=== PATIENT | male | born 1990 | race Caucasian/White ===

== ENCOUNTER 2016-07-30 23:58 | Emergency (ER) | payer OTHER ==
[2016-07-31] MEDS ORDERED: KETOROLAC 30 MG/ML VIAL (J1885) As Ordered ONE (00:39)
[2016-07-31] MEDS ORDERED: METHOCARBAMOL 500 MG TAB As Ordered ONE (00:39)
--- NOTE | 2016-07-31 01:30 | EDDOCDS ---
Physician Documentation [facility] Name: Brown Leblanc Age: 26 yrs Sex: Male : 1990 Arrival Date: 07/30/2016 Time: 23:58 Bed I7 / 29 Private MD: Disposition: 07/31/16 01:21 Discharged to Home/Self Care. Impression: Low back pain, Encounter for issue of repeat prescription - ALBUTEROL. - Condition is Stable. - Discharge Instructions: Back Pain, Adult, Medicine Refill at the Emergency Department. - Prescriptions for Robaxin- 750 750 mg Oral Tablet - take 1 tablet by ORAL route every 6 hours As needed; 40 tablet. ketorolac 10 mg Oral Tablet - take 1 tablet by ORAL route every 6 hours As needed MDD- 40mg. Up to 5 days total use.; 20 tablet. Albuterol Sulfate 90 mcg/actuation Inhalation HFA Aerosol Inhaler - inhale 2 puff by INHALATION route every 4 hours As needed; 1 Inhaler. - Medication Reconciliation, Local Pharmacy Hours form. - Follow up: Phylicia Barr [facility]; When: 2 - 3 days; Reason: Recheck today's complaints, Continuance of care. - Problem is new. - Symptoms have improved. Historical: - Allergies: No known drug Allergies; - Home Meds: 1. none - PMHx: Asthma; - PSHx: [place] teeth extraction; Tonsillectomy; - Social history: Smoking status: Patient states was never smoker of tobacco. No barriers to communication noted, The patient speaks fluent Mosotho, Speaks appropriately for age. - Family history: Not pertinent. - : The pt / caregiver states he / she is not on anticoagulants. Home medication list is obtained from the patient. - Exposure Risk Screening:: None identified. Vital Signs: 07/31 00:26 BP 142 / 72; Pulse 78; Resp 18; Temp 98.4; Pulse Ox 95% ; Weight 99.79 kg / 220 lbs; nn1 Height 5 ft. 10 in. (177.80 cm); Pain 5/10; 01:26 BP 136 / 75; Pulse 80; Resp 18; Temp 97.8(O); Pulse Ox 97% on R/A; Pain 0/10; jmb 00:26 Body Mass Index 31.57 (99.79 kg, 177.80 cm) nn1 MDM: 00:34 ketorolac 60 mg IM once ordered. ck7 00:34 Methocarbamol 1 grams PO once ordered. ck7 00:37 Spine. Lumbosacral, Complete Ordered. EDMS 01:00 Financial registration complete. pm4 01:11 [facility] Payment Agreement was scanned into [employer] and attached to record. pm4 Administered Medications: 00:46 Drug: ketorolac 60 mg [ketorolac 30 mg/mL (1 mL) injection solution (2 mL)] Route: IM; rw1 Site: left deltoid; 00:46 Drug: Methocarbamol 1 grams [methocarbamol 500 mg tablet (2 tabs)] Route: PO; rw1 Signatures: Dispatcher [employer] EDMS Gilberto Finney, MAHNAZC RPA-Cck7 Waqar ChandlerRN RN Alexei Carrillo RN RN nn1 Kenny Merritt, Reg Reg pm4 Brown Yeager LPN rw1 The chart was reviewed and I authenticate all verbal orders and agree with the evaluation and treatment provided.Attachments: 01:11 [facility] Payment Agreement pm4 MTDD
--- NOTE | 2016-07-31 01:30 | EDDOCDS ---
Nurse's Notes [facility] Name: Brown Leblanc Age: 26 yrs Sex: Male : 1990 Arrival Date: 07/30/2016 Time: 23:58 Bed I7 / 29 Private MD: Diagnosis: Low back pain;Encounter for issue of repeat prescription-ALBUTEROL Presentation: 07/31 00:21 Presenting complaint: Patient states: pain in lower back, states he has had chronic nn1 back pain but today felt a snap. Acute neurological deficits are not present. Mechanism of Injury: Lifting. Adult Sepsis Screening: Patient's respiratory rate is less than 22. Systolic blood pressure is greater than 100. Patient has a qSOFA score of 0- Negative Sepsis Screen. Suicide/Homicide risk assessment- the patient denies having any suicidal and/or homicidal ideations and does not present with any other emotional, behavioral or mental health complaints. Status: The patient is an active duty nutritional services host. Transition of care: patient was not received from another setting of care. 00:21 Acuity: CHARLEY Level 4 nn1 00:21 Method Of Arrival: Walkin/Carried/Asstd nn1 Triage Assessment: 00:23 General: Appears in no apparent distress, comfortable. Pain: Location: low back area nn1 Pain currently is 5 out of 10 on a pain scale. At worst was 8 out of 10 on a pain scale. Aggravated by repositioning, walking/movement. Pt Declines HIV testing. Derm: Skin is pink, warm & dry. Musculoskeletal: Circulation, motion, and sensation intact Capillary refill < 3 seconds Range of motion intact in all extremities. No deformity noted Swelling absent. Historical: - Allergies: No known drug Allergies; - Home Meds: 1. none - PMHx: Asthma; - PSHx: [place] teeth extraction; Tonsillectomy; - Social history: Smoking status: Patient states was never smoker of tobacco. No barriers to communication noted, The patient speaks fluent Pashto, Speaks appropriately for age. - Family history: Not pertinent. - : The pt / caregiver states he / she is not on anticoagulants. Home medication list is obtained from the patient. - Exposure Risk Screening:: None identified. Screenin:19 Screening information is obtained from the patient. Fall risk: No risks identified. jmb Assistance ADL's: requires no assistance with activities of daily living. Abuse/DV Screen: The patient / caregiver reports he/she is: not in a situation that causes fear, pain or injury. Nutritional screening: No deficits noted. home support is adequate. 01:26 Advance Directives: Currently, there is no health care proxy. There is no active DNR jmb order. There is no living will. There is no Power of Floor Press Operator. Assessment: 01:19 General: Appears in no apparent distress, Behavior is appropriate for age, cooperative. jmb Pain: Location: back and low back area Pain currently is 7 out of 10 on a pain scale. Neurological: Level of Consciousness is awake, alert, obeys commands, Oriented to person, place, time, Community Development Coordinator are equal bilaterally Speech is normal, Facial symmetry appears normal, Facial symmetry: tongue is midline. Cardiovascular: Capillary refill < 3 seconds Heart tones S1 S2 present Pulses are all present. Rhythm is regular. Respiratory: Airway is patent Respiratory effort is even, unlabored, Respiratory pattern is regular, symmetrical, Breath sounds are clear bilaterally. GI: Abdomen is non- distended Bowel sounds present X 4 quads. Abd is soft and non tender X 4 quads. Derm: Skin is pink, warm & dry. Musculoskeletal: Range of motion intact in all extremities. 01:26 General: Patient instructed on discharge instructions. Patient asked if there were any b questions regarding discharge, patient stated no. Patient signed discharge instructions. Patient discharged in stable condition. . Vital Signs: 00:26 BP 142 / 72; Pulse 78; Resp 18; Temp 98.4; Pulse Ox 95% ; Weight 99.79 kg; Height 5 ft. nn1 10 in. (177.80 cm); Pain 5/10; 01:26 BP 136 / 75; Pulse 80; Resp 18; Temp 97.8(O); Pulse Ox 97% on R/A; Pain 0/10; jmb 00:26 Body Mass Index 31.57 (99.79 kg, 177.80 cm) nn1 Vitals: 00:26 Log In Time: July 30, 2016 at 23:59. nn1 ED Course: 07/30 23:59 Patient visited by Mariela Bustos, Reg. hs2 23:59 Patient moved to Waiting hs2 07/31 00:22 Triage Initiated nn1 00:24 Patient moved to [facility] Wait 00:27 Sosa Garcia,RN is Primary Nurse. nn1 00:27 Patient moved to nn1 00:28 Primary Nurse role handed off by Sosa Garcia RN jmb 00:29 [facility]C [facility] ck7 00:29 Ankit Sorto MD is Attending Physician. ck7 00:29 Patient visited by Gilberto Finney RPA-C. ck7 00:46 Patient visited by Brown Yeager LPN. rw1 01:11 Patient name changed from Brown\S\W\S\Deana\S\ to Brown\S\Munir\S\Deana. EDMS 01:11 [facility] Payment Agreement was scanned into [employer] and attached to record. pm4 01:19 The patient / caregiver is instructed regarding the plan of care and ED course. jmb 01:19 No IV's were initiated during this patient's visit. No procedures done that require jmb assistance. 01:20 Patient visited by Gilberto Finney RPA-C. ck7 01:21 Patient visited by Waqar Chandler RN. jmb 01:21 [facility] ck7 Administered Medications: 00:46 Drug: ketorolac 60 mg [ketorolac 30 mg/mL (1 mL) injection solution (2 mL)] Route: IM; rw1 Site: left deltoid; 00:46 Drug: Methocarbamol 1 grams [methocarbamol 500 mg tablet (2 tabs)] Route: PO; rw1 Order Results: There are currently no results for this order. Outcome: 01:21 Discharge ordered by Provider. ck7 01:26 Discharge Assessment: Patient awake, alert and oriented x 3. No cognitive and/or jmb functional deficits noted. Patient verbalized understanding of disposition instructions. Patient awake and alert. obeys commands, Oriented to person, place and time. Patient verbalized understanding of disposition instructions. Patient has no functional deficits. patient administered narcotics - no. The following High Risk Discharge criteria are identified: None. Discharged to home ambulatory, with significant other. Condition: stable Condition: improved. Discharge instructions given to patient, Instructed on discharge instructions, follow up and referral plans. Demonstrated understanding of instructions, medications, Pt was receptive of discharge instructions/ teaching. Prescriptions given X 3. No special radiology studies were completed. Property sent home with patient. 01:28 Patient left the ED. donald Signatures: Dispatcher [employer] EDMS Tank Benitez, RN RN Brown Owusu LPN LPN rw1 Gilberto Finney, RPA-C RPA-Cck7 Waqar Chandler RN RN jmb Nunez, Nikkole, RN RN nn1 Mariela Bustos, Reg Reg hs2 Kenny Merritt, Reg Reg pm4 MTDD
--- NOTE | 2016-07-31 01:50 | REP ---
Clinical: Deformity and swelling. Technique: AP, lateral, bilateral oblique, and coned-down views. Findings: Alignment and lordosis is maintained. The vertebral bodies including transverse process and spinous processes are intact and normal. There is no evidence for acute fracture / compression injury or subluxation. No evidence for spondylolysis or spondylolisthesis. No significant degenerative change is noted. Impression: Normal lumbosacral spine radiograph series. Signed by Andrews Rosales MD 07/31/2016 01:41 A
--- NOTE | 2016-08-02 02:30 | EDDOCDS ---
Physician Documentation [facility] Name: Brown Leblanc Age: 26 yrs Sex: Male : 1990 Arrival Date: 07/30/2016 Time: 23:58 Bed I7 / 29 Private MD: Disposition: 07/31/16 01:21 Discharged to Home/Self Care. Impression: Low back pain, Encounter for issue of repeat prescription - ALBUTEROL. - Condition is Stable. - Discharge Instructions: Back Pain, Adult, Medicine Refill at the Emergency Department. - Prescriptions for Robaxin- 750 750 mg Oral Tablet - take 1 tablet by ORAL route every 6 hours As needed; 40 tablet. ketorolac 10 mg Oral Tablet - take 1 tablet by ORAL route every 6 hours As needed MDD- 40mg. Up to 5 days total use.; 20 tablet. Albuterol Sulfate 90 mcg/actuation Inhalation HFA Aerosol Inhaler - inhale 2 puff by INHALATION route every 4 hours As needed; 1 Inhaler. - Medication Reconciliation, Local Pharmacy Hours form. - Follow up: Phylicia Barr [facility]; When: 2 - 3 days; Reason: Recheck today's complaints, Continuance of care. - Problem is new. - Symptoms have improved. Historical: - Allergies: No known drug Allergies; - Home Meds: 1. none - PMHx: Asthma; - PSHx: [place] teeth extraction; Tonsillectomy; - Social history: Smoking status: Patient states was never smoker of tobacco. No barriers to communication noted, The patient speaks fluent Cambodian, Speaks appropriately for age. - Family history: Not pertinent. - : The pt / caregiver states he / she is not on anticoagulants. Home medication list is obtained from the patient. - Exposure Risk Screening:: None identified. Vital Signs: 07/31 00:26 BP 142 / 72; Pulse 78; Resp 18; Temp 98.4; Pulse Ox 95% ; Weight 99.79 kg / 220 lbs; nn1 Height 5 ft. 10 in. (177.80 cm); Pain 5/10; 01:26 BP 136 / 75; Pulse 80; Resp 18; Temp 97.8(O); Pulse Ox 97% on R/A; Pain 0/10; jmb 00:26 Body Mass Index 31.57 (99.79 kg, 177.80 cm) nn1 MDM: 00:34 ketorolac 60 mg IM once ordered. ck7 00:34 Methocarbamol 1 grams PO once ordered. ck7 00:37 Spine. Lumbosacral, Complete Ordered. EDMS 01:00 Financial registration complete. pm4 01:11 [facility] Payment Agreement was scanned into [employer] and attached to record. pm4 11:48 T-Sheet-- Draft Copy was scanned into [employer] and attached to record. gb Administered Medications: 00:46 Drug: ketorolac 60 mg [ketorolac 30 mg/mL (1 mL) injection solution (2 mL)] Route: IM; rw1 Site: left deltoid; 00:46 Drug: Methocarbamol 1 grams [methocarbamol 500 mg tablet (2 tabs)] Route: PO; rw1 Signatures: Dispatcher [employer] EDMS Rebekah Aponte, Reg Reg gb Gilberto Finney, RPA-C RPA-Cck7 Waqar ChandlerRN RN Alexei Carrillo RN RN nn1 Kenny Merritt, Reg Reg pm4 Brown Yeager LPN rw1 The chart was reviewed and I authenticate all verbal orders and agree with the evaluation and treatment provided.Attachments: 01:11 [facility] Payment Agreement pm4 11:48 T-Sheet-- Draft Copy gb Chart Complete MTDD
--- NOTE | 2016-08-02 02:30 | EDDOCDS ---
Nurse's Notes [facility] Name: Brown Leblanc Age: 26 yrs Sex: Male : 1990 Arrival Date: 07/30/2016 Time: 23:58 Bed I7 / 29 Private MD: Diagnosis: Low back pain;Encounter for issue of repeat prescription-ALBUTEROL Presentation: 07/31 00:21 Presenting complaint: Patient states: pain in lower back, states he has had chronic nn1 back pain but today felt a snap. Acute neurological deficits are not present. Mechanism of Injury: Lifting. Adult Sepsis Screening: Patient's respiratory rate is less than 22. Systolic blood pressure is greater than 100. Patient has a qSOFA score of 0- Negative Sepsis Screen. Suicide/Homicide risk assessment- the patient denies having any suicidal and/or homicidal ideations and does not present with any other emotional, behavioral or mental health complaints. Status: The patient is an active duty clinical services director. Transition of care: patient was not received from another setting of care. 00:21 Acuity: CHARLEY Level 4 nn1 00:21 Method Of Arrival: Walkin/Carried/Asstd nn1 Triage Assessment: 00:23 General: Appears in no apparent distress, comfortable. Pain: Location: low back area nn1 Pain currently is 5 out of 10 on a pain scale. At worst was 8 out of 10 on a pain scale. Aggravated by repositioning, walking/movement. Pt Declines HIV testing. Derm: Skin is pink, warm & dry. Musculoskeletal: Circulation, motion, and sensation intact Capillary refill < 3 seconds Range of motion intact in all extremities. No deformity noted Swelling absent. Historical: - Allergies: No known drug Allergies; - Home Meds: 1. none - PMHx: Asthma; - PSHx: [place] teeth extraction; Tonsillectomy; - Social history: Smoking status: Patient states was never smoker of tobacco. No barriers to communication noted, The patient speaks fluent Greenlandic, Speaks appropriately for age. - Family history: Not pertinent. - : The pt / caregiver states he / she is not on anticoagulants. Home medication list is obtained from the patient. - Exposure Risk Screening:: None identified. Screenin:19 Screening information is obtained from the patient. Fall risk: No risks identified. jmb Assistance ADL's: requires no assistance with activities of daily living. Abuse/DV Screen: The patient / caregiver reports he/she is: not in a situation that causes fear, pain or injury. Nutritional screening: No deficits noted. home support is adequate. 01:26 Advance Directives: Currently, there is no health care proxy. There is no active DNR jmb order. There is no living will. There is no Power of Nitrating Acid Mixer. Assessment: 01:19 General: Appears in no apparent distress, Behavior is appropriate for age, cooperative. jmb Pain: Location: back and low back area Pain currently is 7 out of 10 on a pain scale. Neurological: Level of Consciousness is awake, alert, obeys commands, Oriented to person, place, time, Wide Piece Goods Inspector are equal bilaterally Speech is normal, Facial symmetry appears normal, Facial symmetry: tongue is midline. Cardiovascular: Capillary refill < 3 seconds Heart tones S1 S2 present Pulses are all present. Rhythm is regular. Respiratory: Airway is patent Respiratory effort is even, unlabored, Respiratory pattern is regular, symmetrical, Breath sounds are clear bilaterally. GI: Abdomen is non- distended Bowel sounds present X 4 quads. Abd is soft and non tender X 4 quads. Derm: Skin is pink, warm & dry. Musculoskeletal: Range of motion intact in all extremities. 01:26 General: Patient instructed on discharge instructions. Patient asked if there were any b questions regarding discharge, patient stated no. Patient signed discharge instructions. Patient discharged in stable condition. . Vital Signs: 00:26 BP 142 / 72; Pulse 78; Resp 18; Temp 98.4; Pulse Ox 95% ; Weight 99.79 kg; Height 5 ft. nn1 10 in. (177.80 cm); Pain 5/10; 01:26 BP 136 / 75; Pulse 80; Resp 18; Temp 97.8(O); Pulse Ox 97% on R/A; Pain 0/10; jmb 00:26 Body Mass Index 31.57 (99.79 kg, 177.80 cm) nn1 Vitals: 00:26 Log In Time: July 30, 2016 at 23:59. nn1 ED Course: 07/30 23:59 Patient visited by Mariela Bustos, Reg. hs2 23:59 Patient moved to Waiting hs2 07/31 00:22 Triage Initiated nn1 00:24 Patient moved to [facility] Wait 00:27 Sosa Garcia,RN is Primary Nurse. nn1 00:27 Patient moved to nn1 00:28 Primary Nurse role handed off by Sosa Garcia RN jmb 00:29 [facility]ber[facility] Fin[facility]C [facility] ck[facility] 00:29 Ankit Sorto MD is Attending Physician. ck7 00:29 Patient visited by Gilberto Finney RPA-C. ck7 00:46 Patient visited by Brown Yeager LPN. rw1 01:11 Patient name changed from Brown\S\W\S\Deana\S\ to Brown\S\Munir\S\Deana. EDMS 01:11 [facility] [place] Agreement was scanned into [employer] and attached to record. pm4 01:19 The patient / caregiver is instructed regarding the plan of care and ED course. jmb 01:19 No IV's were initiated during this patient's visit. No procedures done that require jmb assistance. 01:20 Patient visited by Gilberto Finney RPA-C. ck7 01:21 Patient visited by Waqar Chandler RN. jmb 01:21 [facility] is Referral Physician. ck7 01:55 Spine. Lumbosacral, Complete Returned. EDMS 11:48 T-Sheet-- Draft Copy was scanned into [employer] and attached to record. gb Administered Medications: 00:46 Drug: ketorolac 60 mg [ketorolac 30 mg/mL (1 mL) injection solution (2 mL)] Route: IM; rw1 Site: left deltoid; 00:46 Drug: Methocarbamol 1 grams [methocarbamol 500 mg tablet (2 tabs)] Route: PO; rw1 Order Results: Radiology Order: Spine. Lumbosacral, Complete Test: Spine. Lumbosacral, Complete REASON FOR EXAMINATION: Deformity/Swelling; ; ; Clinical: Deformity and swelling.; ; Technique: AP, lateral, bilateral oblique, and coned-down views.; ; Findings: Alignment and lordosis is maintained. The vertebral bodies including; transverse process and spinous processes are intact and normal. There is no; evidence for acute fracture / compression injury or subluxation. No evidence for; spondylolysis or spondylolisthesis. No significant degenerative change is; noted.; ; Impression:; Normal lumbosacral spine radiograph series.; ; ; Signed by; Andrews Rosales MD 07/31/2016 01:41 A; Outcome: 01:21 Discharge ordered by Provider. ck7 01:26 Discharge Assessment: Patient awake, alert and oriented x 3. No cognitive and/or jmb functional deficits noted. Patient verbalized understanding of disposition instructions. Patient awake and alert. obeys commands, Oriented to person, place and time. Patient verbalized understanding of disposition instructions. Patient has no functional deficits. patient administered narcotics - no. The following High Risk Discharge criteria are identified: None. Discharged to home ambulatory, with significant other. Condition: stable Condition: improved. Discharge instructions given to patient, Instructed on discharge instructions, follow up and referral plans. Demonstrated understanding of instructions, medications, Pt was receptive of discharge instructions/ teaching. Prescriptions given X 3. No special radiology studies were completed. Property sent home with patient. 01:28 Patient left the ED. donald Signatures: Dispatcher [employer] EDMS Tank Benitez, RN JUAN cz Rebekah Aponte, Reg Reg gb Brown Yeager,CUSTOMER ENGAGEMENT REPRESENTATIVE CUSTOMER ENGAGEMENT REPRESENTATIVE rw1 Gilberto Finney, RPA-C RPA-Cck7 Waqar Chandler RN RN jmb Nunez, NikkoleRN RN nn1 Mariela Bustos, Reg Reg hs2 Kenny Merritt, Reg Reg pm4 Chart Complete MTDD
--- NOTE | 2016-08-02 02:30 | EDDOCDS ---
Physician Documentation [facility] Name: Brown Leblanc Age: 26 yrs Sex: Male : 1990 Arrival Date: 07/30/2016 Time: 23:58 Bed I7 / 29 Private MD: Disposition: 07/31/16 01:21 Discharged to Home/Self Care. Impression: Low back pain, Encounter for issue of repeat prescription - ALBUTEROL. - Condition is Stable. - Discharge Instructions: Back Pain, Adult, Medicine Refill at the Emergency Department. - Prescriptions for Robaxin- 750 750 mg Oral Tablet - take 1 tablet by ORAL route every 6 hours As needed; 40 tablet. ketorolac 10 mg Oral Tablet - take 1 tablet by ORAL route every 6 hours As needed MDD- 40mg. Up to 5 days total use.; 20 tablet. Albuterol Sulfate 90 mcg/actuation Inhalation HFA Aerosol Inhaler - inhale 2 puff by INHALATION route every 4 hours As needed; 1 Inhaler. - Medication Reconciliation, Local Pharmacy Hours form. - Follow up: Phylicia Barr [facility]; When: 2 - 3 days; Reason: Recheck today's complaints, Continuance of care. - Problem is new. - Symptoms have improved. Historical: - Allergies: No known drug Allergies; - Home Meds: 1. none - PMHx: Asthma; - PSHx: [place] teeth extraction; Tonsillectomy; - Social history: Smoking status: Patient states was never smoker of tobacco. No barriers to communication noted, The patient speaks fluent German, Speaks appropriately for age. - Family history: Not pertinent. - : The pt / caregiver states he / she is not on anticoagulants. Home medication list is obtained from the patient. - Exposure Risk Screening:: None identified. Vital Signs: 07/31 00:26 BP 142 / 72; Pulse 78; Resp 18; Temp 98.4; Pulse Ox 95% ; Weight 99.79 kg / 220 lbs; nn1 Height 5 ft. 10 in. (177.80 cm); Pain 5/10; 01:26 BP 136 / 75; Pulse 80; Resp 18; Temp 97.8(O); Pulse Ox 97% on R/A; Pain 0/10; jmb 00:26 Body Mass Index 31.57 (99.79 kg, 177.80 cm) nn1 MDM: 00:34 ketorolac 60 mg IM once ordered. ck7 00:34 Methocarbamol 1 grams PO once ordered. ck7 00:37 Spine. Lumbosacral, Complete Ordered. EDMS 01:00 Financial registration complete. pm4 01:11 [facility] Payment Agreement was scanned into [employer] and attached to record. pm4 11:48 T-Sheet-- Draft Copy was scanned into [employer] and attached to record. gb Administered Medications: 00:46 Drug: ketorolac 60 mg [ketorolac 30 mg/mL (1 mL) injection solution (2 mL)] Route: IM; rw1 Site: left deltoid; 00:46 Drug: Methocarbamol 1 grams [methocarbamol 500 mg tablet (2 tabs)] Route: PO; rw1 Signatures: Dispatcher [employer] EDMS Rebekah Aponte, Reg Reg gb Gilberto Finney, RPA-C RPA-Cck7 Waqar ChandlerRN RN Alexei Carrillo RN RN nn1 Kenny Merritt, Reg Reg pm4 Brown Yeager LPN rw1 The chart was reviewed and I authenticate all verbal orders and agree with the evaluation and treatment provided.Attachments: 01:11 [facility] Payment Agreement pm4 11:48 T-Sheet-- Draft Copy gb Chart Complete MTDD
== END 2016-07-31 01:28 | disposition home or self-care (01) ==
LOC: M ED 23:58
DX: Z76.0 Encounter for issue of repeat prescription (principal); M54.5 Low back pain; J45.909 Unspecified asthma, uncomplicated
CPT/HCPCS: 72110; 96372; 99283; J1885